=== PATIENT | female | born 1995 | race African-American/Black ===

== ENCOUNTER 2016-03-28 11:39 | Emergency (ER) | payer OTHER ==
[~2016-03-28] VITALS: Ht 172.7 cm; Wt 152.0 kg
[~2016-03-28 11:39] MED LIST: ACETAMINOPHEN-1 EAC1 PO; BENTYL 20 MG TA20 M1 PO; BIRTHCONTROL PILL; CARAFATE 1 GM TA1 G1 PO; CEFDINIR OR; CIPROFLOXACIN500 M1 PO; CITRATE OF MAG296 ML PO; COLACE 100 MG100 MG PO; CORTISPORIN OTI10 M2; DEPO-PROVERA; DOXYCYCLINE 10100 MG PO; FLAGYL500 MG PO; FLEXERIL PO; GLUCOPHAGE1000 MG PO; IBUPROFEN 600600 M1 PO; IBUPROFEN 800800 MG PO; LAMICTAL100 MG PO; LIDOCAINE VISC100 M1 MM; LORTABELXR PO; MACROBID 100 M100 M1 PO; MEDROXYPROGESTERONE; NAPROSYN500 MG PO; NEXIUM40 MG PO; NORCO 5-325 TA1 EACH PO; OMEPRAZOLE 20 M20 M1 PO; PENICILLIN VK500 M1; PROTONIX40 MG PO; PYRIDIUM200 MG PO; TESSALON200 MG PO; TRAZODONE HCL50 MG PO; ULTRAM 50MG TAB50 MG PO; XANAX 0.5 MG0.5 MG PO; ZOFRAN ODT4 MG PO; [UNRECOGNIZED DRUG - REMARK]
[2016-03-28 11:40] VITALS: BP 135/70
[2016-03-28] MEDS ORDERED: MOBIC7.5 MG PO (12:01)
[2016-03-28] MEDS ORDERED: NORFLEX100 MG PO (12:01)
== END 2016-03-28 12:35 | disposition home or self-care (01) ==
LOC: ER 11:39
DX: M54.5 Low back pain (principal); M54.6 Pain in thoracic spine; K21.9 Gastro-esophageal reflux disease without esophagitis; E11.9 Type 2 diabetes mellitus without complications